=== PATIENT | female | born 1965 | race Caucasian/White ===

== ENCOUNTER 2023-06-21 13:46 | Observation (INO) | payer OTHER, SELFPAY ==
[2023-06-21] VITALS (10 sets, daily range): BP systolic 95–120; BP diastolic 49–76; PULSE 60–88; RESP 17–26; TEMP 36.2–36.8; O2SAT 93–98; BMI 34.3
--- NOTE | 2023-06-21 14:23 | XRR_ITS ---
PROCEDURE INFORMATION: Exam: XR Chest Exam date and time: 06/21/2023 2:45 PM Age: 57 years old Clinical indication: Other: Syncope TECHNIQUE: Imaging protocol: Radiologic exam of the chest. Views: 2 views. COMPARISON: No relevant prior studies available. FINDINGS: Lungs: Unremarkable. No consolidation. Pleural spaces: Unremarkable. No pleural effusion. No pneumothorax. Heart/Mediastinum: Cardiac silhouette is borderline enlarged. Bones/joints: Unremarkable. XR/XR chest 2V* [id number] IMPRESSION: Borderline cardiomegaly otherwise negative chest.
--- NOTE | 2023-06-21 14:23 | CTR_ITS ---
PROCEDURE INFORMATION: Exam: CT Head Without Contrast Exam date and time: 06/21/2023 2:49 PM Age: 57 years old Clinical indication: Pain; Other: Syncope; Headache; Additional info: Acute onset headache TECHNIQUE: Imaging protocol: Computed tomography of the head without contrast. Radiation optimization: All CT scans at this facility use at least one of these dose optimization techniques: automated exposure control; mA and/or kV adjustment per patient size (includes targeted exams where dose is matched to clinical indication); or iterative reconstruction. REPORTING DATA: Count of CT and Cardiac NM exams in prior 12 months: This patient has received 0 known CTs and 0 known cardiac nuclear medicine studies in the 12 months prior to the current study. COMPARISON: No relevant prior studies available. RADIATION DOSE METRICS: Total DLP (mGy-cm): 1075.08 FINDINGS: Brain: Normal. No hemorrhage. No space-occupying masses or areas of mass effect. No edema or midline shift. Cortical sulci are unremarkable for age. Cerebral ventricles: No ventriculomegaly. Paranasal sinuses: Visualized sinuses are unremarkable. No fluid levels. Mastoid air cells: Visualized mastoid air cells are well aerated. Bones/joints: Unremarkable. Soft tissues: Unremarkable. CT/CT head wo con* [id number] IMPRESSION: Negative CT examination of the head. No acute intracranial abnormalities.
--- NOTE | 2023-06-21 14:27 | ED_ITS ---
Documented by User: ELISA Hernandez 06/21/23 16:20 HPI - Headache General: Chief Complaint: Headache Stated Complaint: N/V, Back pain, neck, shoulders, sob Time Seen by Provider: 06/21/23 14:01 History of Present Illness: Patient is a 57-year-old female with a past medical history significant for coronary artery disease requiring 2 stents and hypertension who presents to the emergency department for evaluation of a headache and a syncopal episode. Patient reports that at approximately 12:00 she started to experience back pain. Patient reports that the pain migrated into her neck and then into the occipital portion of her head. Patient reports that her back pain has primarily resolved, however, she continues to have a occipital headache. She currently rates her headache as a 7 out of 10 in severity that she describes as a pounding like sensation. Patient denies history of migraines. Patient states that she does take Plavix. Admits to lightheadedness, dizziness, nausea, and vomiting. Patient is unsure of exactly how many episodes of emesis she had. Patient reports that in in the car she did have 1 syncopal episode. Is unsure of exactly how long the syncopal episode lasted for. Patient reports that she was sitting down in the truck and did not fall. She denies chest pain, shortness of breath, palpitations, numbness, tingling, extremity weakness, abdominal pain, constipation, diarrhea, dysuria, hematuria, fever, chills, or any other associated symptoms. No other complaints at this time. Associated symptoms: Reports lightheadedness, nausea, syncope and vomiting; Deny chest pain, fever(s) or rash Review of Systems General: Reports: 10 or more systems reviewed and unremarkable except in HPI and below Const: Denies: fever(s), chills or body aches Eyes: Reports: change in vision and blurry vision; Denies: eye discomfort, eye discharge or eye redness ENMT: Denies: throat pain, odynophagia, hoarseness or ear or mastoid pain Card: Reports: lightheadedness and syncope; Denies: chest pain, palpitations or irregular heart rhythm Resp: Denies: dyspnea or productive cough GI: Reports: nausea and vomiting; Denies: abdominal pain or hematemesis : Denies: flank pain, dysuria or urinary frequency Musc: Reports: neck pain; Denies: back pain or extremity pain Skin/Breast: Denies: rash Neuro: Reports: headache(s) and dizziness; Denies: weakness in extremities or sensory changes Psych: Denies: anxiety or depression Physical Exam Const: COMMON NORMALS: no acute distress, patient oriented x3 and no limitations HENMT: COMMON NORMALS: normocephalic, atraumatic, hearing grossly normal bilaterally, external ears normal, TM's normal bilaterally, Normal external nose present, moist oral mucous membranes and oropharynx normal HEAD & SCALP: normocephalic and atraumatic NOSE: Normal external nose present EXTERNAL EAR: Yes external ears normal TYMPANIC MEMBRANE: TM's normal bilaterally Eye: COMMON NORMALS: Equal, round and reactive pupils present, EOMs intact bilaterally and conjunctivae normal CONJUNCTIVA: Yes conjunctivae normal PUPIL: Yes Equal, round and reactive pupils present Neck/C-Spine: COMMON NORMALS: full ROM, no lymphadenopathy, supple, no meningeal signs and no JVD OTHER: No pain noted to the cervical neck. Chest: COMMONS NORMALS: normal inspection of the chest Resp: COMMON NORMALS: normal respiratory effort, No retractions, No use of accessory muscles and clear to auscultation bilaterally AUSCULTATION: clear to auscultation bilaterally Cardio: COMMON NORMALS: no JVD, regular rate, regular rhythm, No gallops present (Cardio), No clicks present (Cardio), No murmurs present (Cardio) and No rub (Cardio) RATE: regular rate RHYTHM: regular rhythm GI: COMMON NORMALS: Normal to inspection, nondistended, normoactive bowel sounds present, Soft to palpation and non-tender PALPATION: Yes Soft to palpation Extremity: COMMON NORMALS: normal to inspection and full ROM Neuro: COMMON NORMALS: patient oriented x3, CN's II-XII intact bilaterally, moves all extremities, no focal motor deficits and no sensory deficits noted MENINGEAL SIGNS: Yes no meningeal signs Skin: COMMON NORMALS: no rashes or lesions noted GENERAL SKIN EXAM: no rashes or lesions noted Course Vital Signs: Vital signs: Vital Signs Temperature 98.0 F 06/21/23 13:56 Pulse Rate 72 06/21/23 15:47 Respiratory Rate 23 H 06/21/23 15:47 Blood Pressure 105/53 06/21/23 15:47 Pulse Oximetry 97 06/21/23 15:47 Oxygen Delivery Me thod Room Air 06/21/23 15:47 MDM - Headache Medical Decision Making Patient is a 57-year-old female with a past medical history significant for coronary artery disease requiring 2 stents and hypertension who presents to the emergency department for evaluation of a headache and a syncopal episode. On physical examination patient is nontoxic and in no acute distress. Vital signs remained stable throughout the ED course. Patient is neurovascular intact. No focal neurological deficits noted on examination. Sensation intact to the bilateral upper and lower extremities. No meningeal signs noted. Patient is afebrile. I do not think meningitis or encephalitis is likely at this time. No focal neurological deficits noted on examination. Smile is equal and symmetrical. Do not think stroke is likely at this time. CBC showed no evidence of leukocytosis. CMP showed a creatinine of 1 and a GFR of 56.7. Baseline troponin is 9. 2-hour troponin pending. Chest x-ray showed no acute cardiopulmonary pathology. CT of the head showed no acute intracranial abnormalities. EKG sinus rhythm with nonspecific ST and T wave abnormalities. Urinalysis currently pending. Due to patient's syncopal episode I will admit to the hospitalist for further evaluation. I spoke with Dr. grigsby, the hospitalist on-call, who recommended obtaining a BNP, CRP, procalcitonin, TSH, urine drug screen, and agreed to admit the patient. At this point in time plan of care was passed over to my colleague Dr. Lemos. Patient stated understanding of all discharge directions was agreeable to the plan of care. Patient currently awaiting to be admitted to the floor. Differential Diagnosis Likely migraine, tension headache, subarachnoid hemorrhage (CVA, acute coronary syndrome) and meningitis Lab Data 06/21/23 14:36 06/21/23 14:36 Radiology Impressions Chest X-Ray 06/21/23 14:23 IMPRESSION: Borderline cardiomegaly otherwise negative chest. Head CT 06/21/23 14:23 IMPRESSION: Negative CT examination of the head. No acute intracranial abnormalities. Laboratory Results WBC 10.78 10^3/uL (3.29-11.43) 06/21/23 14:36 RBC 4.22 10^6/uL (3.85-5.65) 06/21/23 14:36 Hgb 13.00 g/dL (11.27-16.99) 06/21/23 14:36 Hct 39.2 % (36-47) 06/21/23 14:36 MCV 92.9 fl (85-98) 06/21/23 14:36 MCH 30.8 pg (27-33) 06/21/23 14:36 MCHC 33.2 g/dL (30-55) 06/21/23 14:36 RDW 12.5 % (12.1-15.1) 06/21/23 14:36 Plt Count 313 10^3/cmm (157-399) 06/21/23 14:36 MPV 9.7 fL (7.4-10.4) 06/21/23 14:36 Neut % (Auto) 78.0 % 06/21/23 14:36 Lymph % (Auto) 13.7 % 06/21/23 14:36 [place] % (Auto) 6.8 % 06/21/23 14:36 Eos % (Auto) 0.7 % 06/21/23 14:36 Baso % (Auto) 0.4 % 06/21/23 14:36 Neut # (Auto) 8.41 10^3/uL (1.8-7.7) H 06/21/23 14:36 Lymph # (Auto) 1.5 10^3/uL (0.8-4.8) 06/21/23 14:36 [place] # (Auto) 0.7 10^3/uL (0.2-0.9) 06/21/23 14:36 Eos # (Auto) 0.1 10^3/uL (0.0-0.8) 06/21/23 14:36 Baso # (Auto) 0.0 10^3/uL (0.0-0.1) 06/21/23 14:36 Nucleated RBC % (auto) 0 % 06/21/23 14:36 Nucleated RBCs # 0.0 /100WBC 06/21/23 14:36 PT 13.00 SECONDS (12.1-14.9) 06/21/23 14:36 INR 0.96 (0.8-1.2) 06/21/23 14:36 APTT 23.7 SECONDS (23.9-36.7) L 06/21/23 14:36 Sodium 134 mmol/L (136-145) L 06/21/23 14:36 Potassium 4.1 mmol/L (3.5-5.1) 06/21/23 14:36 Chloride 99 mmol/L (98-107) 06/21/23 14:36 Carbon Dioxide 22 mmol/L (22-29) 06/21/23 14:36 Anion Gap 17.1 (5-19) 06/21/23 14:36 BUN 28 mg/dL (6-20) H 06/21/23 14:36 Creatinine 1.0 mg/dL (0.5-0.9) H 06/21/23 14:36 GFR Calculation 56.7 mL/min (90-130) L 06/21/23 14:36 Glucose 143 mg/dL (65-115) H 06/21/23 14:36 Calculated Osmolality 286 mOsm/kg (285-295) 06/21/23 14:36 Calcium 9.7 mg/dL (8.5-10.5) 06/21/23 14:36 Total Bilirubin 0.6 mg/dL (0.15-1.2) 06/21/23 14:36 AST 15 U/L (0-32) 06/21/23 14:36 ALT 19 U/L (0-33) 06/21/23 14:36 Alkaline Phosphatase 39 U/L (35-105) 06/21/23 14:36 Troponin T Baseline 9 ng/L (0-10) 06/21/23 14:36 Total Protein 7.2 g/dL (6.6-8.7) 06/21/23 14:36 Albumin 4.6 g/dL (3.5-5.2) 06/21/23 14:36 Globulin 2.6 g/dL (1.3-4.6) 06/21/23 14:36 Urine Color Yellow (Yellow) 06/21/23 15:36 Urine Appearance Clear (CLEAR) 06/21/23 15:36 Urine pH 5 (5-7) 06/21/23 15:36 Ur Specific [place] 1.020 (1.005-1.030) 06/21/23 15:36 Urine Protein Neg (Negative) 06/21/23 15:36 Urine Glucose (UA) Norm (Normal) 06/21/23 15:36 Urine Ketones Negative (Negative) 06/21/23 15:36 Urine Blood 2+ (Negative) H 06/21/23 15:36 Urine Nitrate Negative (Negative) 06/21/23 15:36 Urine Bilirubin Neg (Negative) 06/21/23 15:36 Urine Urobilinogen Norm mg/dL (Negative) 06/21/23 15:36 Ur Leukocyte Esterase Trace (Negative) H 06/21/23 15:36 Urine RBC 0-4 /hpf (0-2) H 06/21/23 15:36 Urine WBC 5-10 /hpf (0-5) H 06/21/23 15:36 Ur Squamous Epith Cells 0-4 /hpf (0-5) H 06/21/23 15:36 Amorphous Sediment Not Reportable 06/21/23 15:36 Urine Bacteria 2+ /hpf (NONE) H 06/21/23 15:36 Urine Mucus 2+ /hpf 06/21/23 15:36 All radiology interpretation(s) finalized by discharge Discharge Plan Discharge Patient Disposition: Admitted As Inpatient Clinical Impression: Syncope, Headache Condition: Stable Sign Out Sign Out Data: Patient Sign Out occurred on 06/21/23 at 16:27. Patient's care was discussed, and care was transferred from to Yusef Lemos DO. 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 [employer] Documented by User: Yusef Lemos DO 06/21/23 16:30 HPI - Headache General: Chief Complaint: Headache Stated Complaint: N/V, Back pain, neck, shoulders, sob Time Seen by Provider: 06/21/23 14:01 Course Vital Signs: Vital signs: Vital Signs Temperature 98.0 F 06/21/23 13:56 Pulse Rate 72 06/21/23 15:47 Respiratory Rate 23 H 06/21/23 15:47 Blood Pressure 105/53 06/21/23 15:47 Pulse Oximetry 97 06/21/23 15:47 Oxygen Delivery Me thod Room Air 06/21/23 15:47 MDM - Headache Medical Decision Making Patient is a 57-year-old female with a past medical history significant for coronary artery disease requiring 2 stents and hypertension who presents to the emergency department for evaluation of a headache and a syncopal episode. On physical examination patient is nontoxic and in no acute distress. Vital signs remained stable throughout the ED course. Patient is neurovascular intact. No focal neurological deficits noted on examination. Sensation intact to the bilateral upper and lower extremities. No meningeal signs noted. Patient is afebrile. I do not think meningitis or encephalitis is likely at this time. No focal neurological deficits noted on examination. Smile is equal and symmetri jose. Do not think stroke is likely at this time. CBC showed no evidence of leukocytosis. CMP showed a creatinine of 1 and a GFR of 56.7. Baseline troponin is 9. 2-hour troponin pending. Chest x-ray showed no acute cardiopulmonary pathology. CT of the head showed no acute intracranial abnormal ities. EKG sinus rhythm with nonspecific ST and T wave abnormalities. Urinalysis currently pending. Due to patient's syncopal episode I will admit to the hospitalist for further evaluation. I spoke with Dr. grigsby, the hospitalist on-call, who recommended obtaining a BNP, CRP, procalcitonin, TSH, urine drug screen, and agreed to admit the patient. At this point in time plan of care was passed over to my colleague Dr. Lemos. Patient stated understanding of all discharge directions was agreeable to the plan of care. Patient currently awaiting to be admitted to the floor. Chart reviewed and patient discussed with midlevel. Agree with assessment and plan. Lab Data 06/21/23 14:36 06/21/23 14:36 Radiology Impressions Chest X-Ray 06/21/23 14:23 IMPRESSION: Borderline cardiomegaly otherwise negative chest. Head CT 06/21/23 14:23 IMPRESSION: Negative CT examination of the head. No acute intracranial abnormalities. Laboratory Results WBC 10.78 10^3/uL (3.29-11.43) 06/21/23 14:36 RBC 4.22 10^6/uL (3.85-5.65) 06/21/23 14:36 Hgb 13.00 g/dL (11.27-16.99) 06/21/23 14:36 Hct 39.2 % (36-47) 06/21/23 14:36 MCV 92.9 fl (85-98) 06/21/23 14:36 MCH 30.8 pg (27-33) 06/21/23 14:36 MCHC 33.2 g/dL (30-55) 06/21/23 14:36 RDW 12.5 % (12.1-15.1) 06/21/23 14:36 Plt Count 313 10^3/cmm (157-399) 06/21/23 14:36 MPV 9.7 fL (7.4-10.4) 06/21/23 14:36 Neut % (Auto) 78.0 % 06/21/23 14:36 Lymph % (Auto) 13.7 % 06/21/23 14:36 [place] % (Auto) 6.8 % 06/21/23 14:36 Eos % (Auto) 0.7 % 06/21/23 14:36 Baso % (Auto) 0.4 % 06/21/23 14:36 Neut # (Auto) 8.41 10^3/uL (1.8-7.7) H 06/21/23 14:36 Lymph # (Auto) 1.5 10^3/uL (0.8-4.8) 06/21/23 14:36 [place] # (Auto) 0.7 10^3/uL (0.2-0.9) 06/21/23 14:36 Eos # (Auto) 0.1 10^3/uL (0.0-0.8) 06/21/23 14:36 Baso # (Auto) 0.0 10^3/uL (0.0-0.1) 06/21/23 14:36 Nucleated RBC % (auto) 0 % 06/21/23 14:36 Nucleated RBCs # 0.0 /100WBC 06/21/23 14:36 PT 13.00 SECONDS (12.1-14.9) 06/21/23 14:36 INR 0.96 (0.8-1.2) 06/21/23 14:36 APTT 23.7 SECONDS (23.9-36.7) L 06/21/23 14:36 Sodium 134 mmol/L (136-145) L 06/21/23 14:36 Potassium 4.1 mmol/L (3.5-5.1) 06/21/23 14:36 Chloride 99 mmol/L (98-107) 06/21/23 14:36 Carbon Dioxide 22 mmol/L (22-29) 06/21/23 14:36 Anion Gap 17.1 (5-19) 06/21/23 14:36 BUN 28 mg/dL (6-20) H 06/21/23 14:36 Creatinine 1.0 mg/dL (0.5-0.9) H 06/21/23 14:36 GFR Calculation 56.7 mL/min (90-130) L 06/21/23 14:36 Glucose 143 mg/dL (65-115) H 06/21/23 14:36 Calculated Osmolality 286 mOsm/kg (285-295) 06/21/23 14:36 Calcium 9.7 mg/dL (8.5-10.5) 06/21/23 14:36 Total Bilirubin 0.6 mg/dL (0.15-1.2) 06/21/23 14:36 AST 15 U/L (0-32) 06/21/23 14:36 ALT 19 U/L (0-33) 06/21/23 14:36 Alkaline Phosphatase 39 U/L (35-105) 06/21/23 14:36 Troponin T Baseline 9 ng/L (0-10) 06/21/23 14:36 Total Protein 7.2 g/dL (6.6-8.7) 06/21/23 14:36 Albumin 4.6 g/dL (3.5-5.2) 06/21/23 14:36 Globulin 2.6 g/dL (1.3-4.6) 06/21/23 14:36 Urine Color Yellow (Yellow) 06/21/23 15:36 Urine Appearance Clear (CLEAR) 06/21/23 15:36 Urine pH 5 (5-7) 06/21/23 15:36 Ur Specific [place] 1.020 (1.005-1.030) 06/21/23 15:36 Urine Protein Neg (Negative) 06/21/23 15:36 Urine Glucose (UA) Norm (Normal) 06/21/23 15:36 Urine Ketones Negative (Negative) 06/21/23 15:36 Urine Blood 2+ (Negative) H 06/21/23 15:36 Urine Nitrate Negative (Negative) 06/21/23 15:36 Urine Bilirubin Neg (Negative) 06/21/23 15:36 Urine Urobilinogen Norm mg/dL (Negative) 06/21/23 15:36 Ur Leukocyte Esterase Trace (Negative) H 06/21/23 15:36 Urine RBC 0-4 /hpf (0-2) H 06/21/23 15:36 Urine WBC 5-10 /hpf (0-5) H 06/21/23 15:36 Ur Squamous Epith Cells 0-4 /hpf (0-5) H 06/21/23 15:36 Amorphous Sediment Not Reportable 06/21/23 15:36 Urine Bacteria 2+ /hpf (NONE) H 06/21/23 15:36 Urine Mucus 2+ /hpf 06/21/23 15:36 Discharge Plan Discharge Patient Disposition: Admitted As Inpatient Clinical Impression: Syncope, Headache Condition: Stable Sign Out Sign Out Data: Patient Sign Out occurred on 06/21/23 at 16:27. Patient's care was discussed, and care was transferred from to Yusef Lemos DO. 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 Fredrick Sethi
[2023-06-21 14:45] LABS: Basophils % 0.4 %; Eosinophils # 0.1 10^3/uL (0.0-0.8); Eosinophils % 0.7 %; Hematocrit 39.2 % (36-47); Lymphocytes # 1.5 10^3/uL (0.8-4.8); Lymphocytes % 13.7 %; Mean Corpuscular HGB Conc 33.2 g/dL (30-55); Mean Corpuscular Hemoglobin 30.8 pg (27-33); Mean Corpuscular Volume 92.9 fl (85-98); Mean Platelet Volume 9.7 fL (7.4-10.4); Monocytes # 0.7 10^3/uL (0.2-0.9); Monocytes % 6.8 %; Neutrophils # 8.41 10^3/uL (1.8-7.7); Nucleated Red Blood Cells % 0 %; Platelet Count 313 10^3/cmm (157-399); Red Blood Count 4.22 10^6/uL (3.85-5.65); Red Cell Distribution Width 12.5 % (12.1-15.1); White Blood Count 10.78 10^3/uL (3.29-11.43)
[2023-06-21 15:19] LABS: Alanine Aminotransferase 19 U/L (0-33); Albumin Level 4.6 g/dL (3.5-5.2); Alkaline Phosphatase 39 U/L (35-105); Anion Gap 17.1 (5-19); Aspartate Amino Transferase 15 U/L (0-32); Blood Urea Nitrogen 28 mg/dL (6-20); Calcium 9.7 mg/dL (8.5-10.5); Carbon Dioxide 22 mmol/L (22-29); Chloride 99 mmol/L (98-107); Globulin 2.6 g/dL (1.3-4.6); Glomerular Filtration Rate 56.7 mL/min (90-130); Glucose 143 mg/dL (65-115); Osmolality Calculated 286 mOsm/kg (285-295); Potassium 4.1 mmol/L (3.5-5.1); Sodium 134 mmol/L (136-145); Total Bilirubin 0.6 mg/dL (0.15-1.2); Total Protein 7.2 g/dL (6.6-8.7)
[2023-06-21 15:21] LABS: Troponin(5th) Baseline 9 ng/L (0-10)
[2023-06-21 15:24] LABS: INR 0.96 (0.8-1.2); Partial Thromboplastin Time 23.7 SECONDS (23.9-36.7)
[2023-06-21] MEDS: sodium chloride 0.9% 1,000 ML 999 ML IV (15:47)
[2023-06-21 16:21] LABS: Add Urine Microscopic? YES; Bilirubin Urine Neg (Negative); Blood Urine 2+ (Negative); Glucose Urine UA Norm (Normal); Ketones Urine Negative (Negative); Leukocyte Esterase Urine Trace (Negative); Nitrate Urine Negative (Negative); Protein Urine Neg (Negative); RBC Urine 0-4 /hpf (0-2); Squamous Epithelial Cell Urine 0-4 /hpf (0-5); Urine Appearance Clear (CLEAR); Urine Color Yellow (Yellow); Urobilinogen Urine Norm (Negative); pH Urine 5 (5-7)
[2023-06-21 16:22] LABS: Add Urine Culture? Yes; Bacteria Urine 2+ /hpf; Mucus Urine 2+ /hpf
--- NOTE | 2023-06-21 16:31 | ECG_ITS ---
[facility] Test Date: 2023-06-21 Pat Name: Jasmina Salgado Department: Room: Gender: Female Signal Intelligence/Electronic Warfare: : 1965 Requested By: Crispin Vuong Order Number: [id number] Diaz MD: Adilene Lanza M.D. Measurements Intervals [place] Rate: 63 P: 11 VT: 177 QRS: 21 QRSD: 105 T: 65 QT: 417 QTc: 427 Interpretive Statements SINUS RHYTHM WITH SINUS ARRHYTHMIA LOW QRS VOLTAGE IN PRECORDIAL LEADS [QRS DEFLECTION < 1.0 mV IN CHEST LEADS] POSSIBLE RIGHT VENTRICULAR CONDUCTION DELAY [RSR (QR) IN V1/V2] MODERATE T-WAVE ABNORMALITY, CONSIDER ANTERIOR ISCHEMIA [-0.1+ mV T-WAVE IN V3/V4] No previous ECG available for comparison Electronically Signed On 06-21-2023 17:52:41 CDT by Adilene Lanza M.D. [id number]
--- NOTE | 2023-06-21 16:35 | CTR_ITS ---
PROCEDURE INFORMATION: Exam: CTA Head With Contrast, Arteriography Exam date and time: 06/21/2023 4:46 PM Age: 57 years old Clinical indication: Other: Lightheaded, dizzyness, syncope TECHNIQUE: Imaging protocol: Computed tomographic angiography of the head with contrast. Exam focused on the arteries. 3D rendering (Not supervised by radiologist): MIP and/or 3D reconstructed images were created by the technologist. Radiation optimization: All CT scans at this facility use at least one of these dose optimization techniques: automated exposure control; mA and/or kV adjustment per patient size (includes targeted exams where dose is matched to clinical indication); or iterative reconstruction. Contrast material: OMNI 350; Contrast volume: 100 ml; Contrast route: INTRAVENOUS (IV); REPORTING DATA: Count of CT and Cardiac NM exams in prior 12 months: This patient has received 0 known CTs and 0 known cardiac nuclear medicine studies in the 12 months prior to the current study. COMPARISON: CT head wo con* [id number] 06/21/2023 2:49 PM RADIATION DOSE METRICS: Total DLP (mGy-cm): 492.52 FINDINGS: ANTERIOR CIRCULATION: Right internal carotid artery: Intracranial segment is patent with no significant stenosis. No aneurysm. Right middle cerebral artery: No occlusion or significant stenosis. No aneurysm. Right anterior cerebral artery: No occlusion or significant stenosis. No aneurysm. Left internal carotid artery: Intracranial segment is patent with no significant stenosis. No aneurysm. Left middle cerebral artery: No occlusion or significant stenosis. No aneurysm. Left anterior cerebral artery: No occlusion or significant stenosis. No aneurysm. POSTERIOR CIRCULATION: Right vertebral artery: No occlusion or significant stenosis. No aneurysm. Left vertebral artery: No occlusion or significant stenosis. No aneurysm. Basilar artery: No occlusion or significant stenosis. No aneurysm. Right posterior cerebral artery: No occlusion or significant stenosis. No aneurysm. Left posterior cerebral artery: No occlusion or significant stenosis. No aneurysm. Brain: No intracranial hemorrhage, mass effect, or midline shift. Cerebral ventricles: No ventriculomegaly. Bones/joints: Unremarkable. No acute fracture. Soft tissues: Unremarkable. PROCEDURE INFORMATION: Exam: CTA Neck With Contrast Exam date and time: 06/21/2023 4:46 PM Age: 57 years old Clinical indication: Other: Lightheaded, dizzyness, syncope TECHNIQUE: Imaging protocol: Computed tomographic angiography of the neck with contrast. Exam focused on the cervical segments of the vasculature. 3D rendering (Not supervised by radiologist): MIP and/or 3D reconstructed images were created by the technologist. Radiation optimization: All CT scans at this facility use at least one of these dose optimization techniques: automated exposure control; mA and/or kV adjustment per patient size (includes targeted exams where dose is matched to clinical indication); or iterative reconstruction. Contrast material: OMNI 350; Contrast volume: 100 ml; Contrast route: INTRAVENOUS (IV); REPORTING DATA: Count of CT and Cardiac NM exams in prior 12 months: This patient has received 0 known CTs and 0 known cardiac nuclear medicine studies in the 12 months prior to the current study. COMPARISON: CT head wo con* [id number] 06/21/2023 2:49 PM RADIATION DOSE METRICS: Total DLP (mGy-cm): 492.52 FINDINGS: Right common carotid artery: No stenosis. No dissection or occlusion. Right internal carotid artery: No stenosis of the extracranial segment. No dissection or occlusion. Right external carotid artery: No occlusion or stenosis of the origin. Left common carotid artery: No stenosis. No dissection or occlusion. Left internal carotid artery: No stenosis of the extracranial segment. No dissection or occlusion. Left external carotid artery: No occlusion or stenosis of the origin. Right vertebral artery: No stenosis. No dissection or occlusion. Left vertebral artery: No stenosis. No dissection or occlusion. Soft tissues: Normal. No significant soft tissue swelling. Bones/joints: No acute fracture. Moderate degenerative changes mid-lower cervical spine. Lungs: Scattered ground-glass opacities upper lung zones intermixed with areas of relative radiolucency in a mosaic pattern possibly due to air trapping. CT/CT angio headneck* [id number] IMPRESSION: No large vessel stenosis or occlusion. IMPRESSION: No stenosis or occlusion. REFERENCES: NASCET CRITERIA. The degree of stenosis in the cervical segment of the internal carotid artery is based on NASCET criteria. Normal is no stenosis. Mild is less than 50% stenosis. Moderate is 50-69% stenosis. Severe is 70% to 99% stenosis. Total occlusion is no detectable patent lumen.
--- NOTE | 2023-06-21 16:35 | USCV_ITS ---
Jasmina Salgado Age: 57 Gender: F : 1965 Exam Date: 06/21/2023 17:33 Ordering Phys: Bill Loredo MD Technologist: Damon Mei Exam Location: [facility] Indication: syncope BP: 101 / 56 HR: 65 Rhythm: Sinus Technical Quality: Adequate MEASUREMENTS (Male / Female) Normal Values 2D ECHO LVOT Diameter 2.0 cm LV Ejection Fraction MOD 2C 60.6 % LV Ejection Fraction 2C AL 61.7 % LA Diameter 3.3 cm LA Width 3.4 cm LA Height 4.1 cm RA Width 3.6 cm RA Height 4.5 cm Aorta at Sinotubular Diameter 2.5 cm IVC Diameter 1.8 cm M-MODE Aortic Annulus Diameter 2.8 cm LA Ao Ratio MM 1.3 MV E Point Septal Separation 0.5 cm DOPPLER AV Peak Velocity 148.0 cm/s LVOT Peak Velocity 59.0 cm/s AV Area Cont Eq vti 1.3 cm squared AV Area Cont Eq pk 1.3 cm squared MV Peak Velocity 71.0 cm/s MV Area PHT 4.0 cm squared Mitral E to A Ratio 1.1 MV E' Velocity 35.0 cm/s Mitral E to MV E' Ratio 6.6 Mitral E to LV E' Lateral Ratio 6.8 Mitral E to LV E' Septal Ratio 6.4 Right Atrial Pressure 3.0 mmHg PV Peak Velocity 106.3 cm/s RV Acceleration Time 0.1 s RV Ejection Time 0.3 s RV AcT/ET 0.3 FINDINGS Left Ventricle Normal left ventricular size, systolic function and wall thickness, with no regional wall motion abnormalities. Left ventricular ejection fraction is estimated at 60 %. Normal diastolic function. Right Ventricle Normal right ventricular size and systolic function. RVSP could not be calculated due to incomplete tricuspid regurgitation velocity profile. Right Atrium Normal right atrial size. Left Atrium Normal left atrial size. Mitral Valve Structurally normal mitral valve. No mitral valve stenosis. No mitral valve regurgitation. Aortic Valve Structurally normal trileaflet aortic valve. No aortic valve stenosis. No aortic valve regurgitation. Tricuspid Valve Structurally normal tricuspid valve. No tricuspid valve stenosis. Trace tricuspid valve regurgitation. Pulmonic Valve Pulmonic valve not well visualized. No pulmonary valve stenosis. Trace pulmonary valve regurgitation. Pericardium No pericardial effusion. Aorta Normal size aortic root and proximal ascending aorta. IVC Normal IVC dimension with >50% respiratory change of the inferior vena cava. CONCLUSIONS 1. Normal left ventricular size, systolic function and wall thickness, with no regional wall motion abnormalities. Left ventricular ejection fraction is estimated at 60 %. Normal diastolic function. 2. No significant valvular abnormality. 3. No prior similar studies to compare. Adilene Lanza MD (Electronically Signed) Final Date: 22 June 2023 09:32 S
--- NOTE | 2023-06-21 16:44 | PM.HP ---
Providers/Chief Complaint Chief Complaint: N/V, Back pain, neck, shoulders, sob History of Present Illness Jasmina Salgado is a 57 year old female with a past medical history of CAD, hypertension, hypothyroidism, who presents to [facility] due to syncopal episode, presyncope, lightens, dizziness, posterior headaches. Patient tells me that recently back in November, she had 2 stents placed, in [facility], due to shortness of breath and anterior chest pain, since then she has been doing well, she is actually been working on her mother's house, building the home, she does tell me that yesterday she was working with chemicals, working in the garage, she also was painting, she was not wearing a facemask. Denies being symptomatic, she does report she does not hydrate that well. She tells me that a week ago she did feel lightheaded and dizzy felt like she was in a pass out. He tells me that today she actually was at a ball game for one of her grandsons, which she started to feel unwell, she had a poor appetite, felt lightheaded, dizzy, did not feel well. At that time she also reported posterior headaches, she reported pain, stiffness at the base of her neck, radiating up to her head, no blurry vision, no facial droop no slurring of words, no focal weakness, no visual deficits, she was able to walk, she got into her car, this is when her tells me that she passed out a couple times, while in the car and felt nauseous and vomited, he tells me that when she passed out she would be confused and would take a few seconds for her to come to full cognition. No facial droop no slurring of words, no focal weakness, no seizure-like episodes. Her does tell me that when she was young, she had a history of passing out, she was diagnosed with a cardiac murmur she also has a history of passing out when she is in a lot of pain. Review of Systems Const: Denies: fever(s) or chills Eyes: Denies: change in vision Card: Reports: lightheadedness and syncope; Denies: chest pain, palpitations or dyspnea on exertion Resp: Denies: dyspnea or non-productive cough GI: Denies: abdominal pain, nausea or vomiting : Denies: flank pain or difficulty voiding Musc: Reports: neck pain and back pain Skin/Breast: Denies: rash Neuro: Reports: dizziness; Denies: headache(s), numbness in extremities, weakness in extremities, sensory changes, lack of coordination, difficulty walking, Slurred speech present or difficulty communicating thoughts Psych: Denies: anxiety or depression Endo: Denies: polyuria Hugo/Lymph: Denies: easy bruising Medications/Allergies Home Medications Medication Instructions Recorded Confirmed Last Taken Type aspirin 81 mg tablet,delayed 81 mg PO DAILY 06/21/23 06/21/23 1 Week Ago History release ~06/14/23 atorvastatin 80 mg tablet 80 mg PO DAILY 06/21/23 06/21/23 06/21/23 History clopidogrel 75 mg tablet 75 mg PO DAILY 06/21/23 06/21/23 06/21/23 History escitalopram oxalate 10 mg tablet 15 mg PO BEDTIME 06/21/23 06/21/23 06/21/23 History fexofenadine 180 mg tablet 180 mg PO DAILY 06/21/23 06/21/23 1 Week Ago History ~06/14/23 isosorbide mononitrate 30 mg 30 mg PO QAM 06/21/23 06/21/23 06/21/23 History tablet,extended release 24 hr levothyroxine 137 mcg tablet 137 mcg PO DAILY 06/21/23 06/21/23 06/21/23 History lisinopril 20 mg tablet 20 mg PO DAILY 06/21/23 06/21/23 06/21/23 History mjiwxrcp-ypsnojzjl-bwxnrxmub 3.5 4 drp otic (ear) TID 06/21/23 06/21/23 Unknown History mg/mL-10,000 unit/mL-1 % ear solution PFSH Acute PFSH: Medical History (Updated 06/21/23 @ 16:51 by Bill Loredo MD) CAD (coronary artery disease) History of angiography HTN (hypertension) with goal to be determined Hypothyroidism Surgical History (Updated 06/21/23 @ 16:50 by Bill Loredo MD) History of coronary artery stent placement Family History (Updated 06/21/23 @ 16:50 by Bill Loredo MD) Mother CAD (coronary artery disease) Sister Breast cancer Social History (Updated 06/21/23 @ 16:51 by Bill Loredo MD) Smoking and tobacco/nicotine status: never used tobacco/nicotine Alcohol intake: never Substance/Drug Use: never Vitals/I&O/Wt Last Vital Signs Temp 98.0 F 06/21/23 13:56 Pulse 72 06/21/23 15:47 Resp 23 H 06/21/23 15:47 BP 105/53 06/21/23 15:47 Pulse Ox 97 06/21/23 15:47 O2 Del Method Room Air 06/21/23 15:47 Weight last 48 hrs Weight 90.718 kg Physical Exam Const: COMMON NORMALS: no acute distress and patient oriented x3 HENMT: COMMON NORMALS: normocephalic HEAD & SCALP: normocephalic Eye: COMMON NORMALS: Equal, round and reactive pupils present and EOMs intact bilaterally Neck/C-Spine: COMMON NORMALS: full ROM and no lymphadenopathy Lymph: LYMPHATIC: no lymphadenopathy noted Resp: COMMON NORMALS: normal respiratory effort, No retractions, No use of accessory muscles and clear to auscultation bilaterally AUSCULTATION: clear to auscultation bilaterally Cardio: COMMON NORMALS: no JVD, regular rate, regular rhythm, S1 normal heart sound present and S2 normal heart sound present RATE: regular rate RHYTHM: regular rhythm HEART SOUNDS: S1 normal heart sound present and S2 normal heart sound present GI: COMMON NORMALS: Normal to inspection, nondistended, normoactive bowel sounds present, Soft to palpation and non-tender Extremity: COMMON NORMALS: no pedal edema Neuro: COMMON NORMALS: patient oriented x3, CN's II-XII intact bilaterally, moves all extremities and no focal motor deficits Psych: COMMON NORMALS: mental status grossly normal Data 06/21/23 14:36 06/21/23 14:36 A&P Assessment and plan (1) Syncope: (2) Lightheadedness: (3) Nausea & vomiting: (4) Headache: Plan Syncope, ? With lightheadedness, nausea, vomiting, posterior headaches, ? Plan, ? Etiology unclear ? CT angiogram head and neck, ? Orthostatics vitals: ? Serial EKGs, serial troponins, telemetry monitoring ? Cardiac echo ? Telemetry monitoring, ? Continue aspirin, statin, Plavix ? Check TSH, follow UA, ? History of CAD, ? History of hypertension: Has history of hypothyroidism, ? Full code, ? Lovenox for DVT prophylaxis PT OT Attestations Medical Necessity Statement*: Patient requires hospitalization, headache, syncope, dizziness, syncope, outpatient with observation Diagnoses Syncope R55 Lightheadedness R42 Nausea & vomiting R11.2 Headache R51.9
[2023-06-21 16:54] LABS: NT Pro B Type Natriuretic Pept 74 pg/mL (0-125); Thyroid Stimulating Hormone 15.35 uIU/mL (0.27-4.20)
[2023-06-21] MEDS: iohexol 350 mg/mL 500 mL Btl (per mL) IV (16:58)
[2023-06-21 17:05] LABS: Amphetamines Screen Urine Negative (Negative); Barbiturates Screen Urine Negative (Negative); Benzodiazepines Screen Urine Negative (Negative); Cocaine Screen Urine Negative (Negative); Opiate Screen Urine Negative (Negative); PCP Screen Urine Negative (Negative); THC Screen Urine Negative (Negative)
[2023-06-21 17:05] LABS: C Reactive Protein 4.2 mg/L (0.0-4.9)
[2023-06-21 17:45] LABS: Lactic Sepsis W/Reflex 0.9 mmol/L (0.5-2.2)
[2023-06-21 18:03] LABS: Troponin 5 2HR 6.27 ng/L (0-10); Troponin 5 2HR Delta -2.73 ABS# (0-10)
[2023-06-21 18:06] LABS: Chol HDL Ratio 3.78 mg/dL (0.0-4.40); Cholesterol 204 mg/dL (0-200); HDL Cholesterol 54 mg/dL (60-100); LDL Cholesterol Calculated 126 mg/dL (50-129); LDL HDL Ratio 2.33 RATIO (0.00-3.22); Triglycerides 120 mg/dL (0-150)
[2023-06-21] MEDS: enoxaparin 40 mg/0.4 mL Syringe SUBCUT (18:23)
[2023-06-21] MEDS: pantoprazole 40 mg SDV IVP (18:23)
[2023-06-21] MEDS: sodium chloride 0.9% 1,000 ML 100 ML IV (18:27)
[2023-06-21] MEDS: escitalopram 10 mg Tablet 15 MG PO (20:21)
[2023-06-21 22:55] LABS: Estmated Average Glucose 108; Hemoglobin A1C 5.4 % (4.0-6.0)
[2023-06-22 04:00] VITALS: BP 153/75; PULSE 72; RESP 18; TEMP 36.6; O2SAT 95
[2023-06-22] MEDS: sodium chloride 0.9% 1,000 ML 100 ML IV (04:00)
[2023-06-22 05:11] LABS: Basophils % 0.2 %; Eosinophils # 0.1 10^3/uL (0.0-0.8); Eosinophils % 1.1 %; Hematocrit 35.9 % (36-47); Lymphocytes # 1.5 10^3/uL (0.8-4.8); Lymphocytes % 17.9 %; Mean Corpuscular HGB Conc 33.1 g/dL (30-55); Mean Corpuscular Hemoglobin 30.7 pg (27-33); Mean Corpuscular Volume 92.8 fl (85-98); Mean Platelet Volume 10.1 fL (7.4-10.4); Monocytes # 0.8 10^3/uL (0.2-0.9); Monocytes % 9.8 %; Neutrophils % 70.8 %; Nucleated Red Blood Cells % 0 %; Platelet Count 262 10^3/cmm (157-399); Red Blood Count 3.87 10^6/uL (3.85-5.65); Red Cell Distribution Width 12.6 % (12.1-15.1)
[2023-06-22 05:38] LABS: Alanine Aminotransferase 16 U/L (0-33); Albumin Level 4.1 g/dL (3.5-5.2); Alkaline Phosphatase 33 U/L (35-105); Anion Gap 13.2 (5-19); Aspartate Amino Transferase 15 U/L (0-32); Blood Urea Nitrogen 17 mg/dL (6-20); Carbon Dioxide 21 mmol/L (22-29); Chloride 110 mmol/L (98-107); Creatinine Clr Calc Pharmacy 94.4054; Globulin 2.3 g/dL (1.3-4.6); Glomerular Filtration Rate 85.6 mL/min (90-130); Glucose 102 mg/dL (65-115); Magnesium 2.2 mg/dL (1.7-2.3); Osmolality Calculated 292 mOsm/kg (285-295); Phosphorus 2.9 mg/dL (2.5-4.5); Potassium 4.2 mmol/L (3.5-5.1); Sodium 140 mmol/L (136-145); Total Bilirubin 0.5 mg/dL (0.15-1.2); Total Protein 6.4 g/dL (6.6-8.7)
[2023-06-22] MEDS: isosorbide mononitrate ER 30 mg Tablet PO (05:46)
[2023-06-22 06:00] VITALS: PULSE 68
[2023-06-22 08:00] VITALS: BP 123/71; PULSE 71; RESP 17; TEMP 36.4; O2SAT 95
[2023-06-22 08:21] VITALS: BP 104/64; BP 112/70; BP 123/71
[2023-06-22] MEDS: aspirin 81 mg EC Tablet PO (10:36)
[2023-06-22] MEDS: atorvastatin 40 mg Tablet 80 MG PO (10:36)
[2023-06-22] MEDS: clopidogrel 75 mg Tablet PO (10:37)
[2023-06-22] MEDS: levothyroxine 137 mcg Tablet PO (10:38)
[2023-06-22] MEDS: lisinopril 20 mg Tablet PO (10:38)
[2023-06-22 10:53] LABS: Free T4 Free Thyroxine 1.01 ng/dL (0.82-1.77); T3 Free 1.7 PG/ML (2.0-4.4)
--- NOTE | 2023-06-22 10:58 | PM.DCS ---
Discharge Providers Date of Admission: 06/21/23 17:31 Date of Discharge: June 22, 2023 Attending Provider at Admission: Bill Loredo MD Attending Provider at Discharge: Bill Loredo MD Diagnoses at Discharge Discharge Diagnosis (1) Syncope: Status: Acute (2) Lightheadedness: Status: Acute (3) Nausea & vomiting: Status: Acute (4) Headache: Status: Acute Reason for Visit Reason for Visit: N/V, Back pain, neck, shoulders, sob Hospital Course Hospital Course Jasmina Salgado is a 57 year old female with a past medical history of CAD, hypertension, hypothyroidism, who presents to [facility] due to syncopal episode, presyncope, lightens, dizziness, posterior headaches.? Patient tells me that recently back in November, she had 2 stents placed, in [facility], due to shortness of breath and anterior chest pain, since then she has been doing well, she is actually been working on her mother's house, building the home, she does tell me that yesterday she was working with chemicals, working in the garage, she also was painting, she was not wearing a facemask.? Denies being symptomatic, she does report she does not hydrate that well.? She tells me that a week ago she did feel lightheaded and dizzy felt like she was in a pass out.? He tells me that today she actually was at a ball game for one of her grandsons, which she started to feel unwell, she had a poor appetite, felt lightheaded, dizzy, did not feel well.? At that time she also reported posterior headaches, she reported pain, stiffness at the base of her neck, radiating up to her head, no blurry vision, no facial droop no slurring of words, no focal weakness, no visual deficits, she was able to walk, she got into her car, this is when her tells me that she passed out a couple times, while in the car and felt nauseous and vomited, he tells me that when she passed out she would be confused and would take a few seconds for her to come to full cognition.? No facial droop no slurring of words, no focal weakness, no seizure-like episodes.? Her does tell me that when she was young, she had a history of passing out, she was diagnosed with a cardiac murmur she also has a history of passing out when she is in a lot of pain. Patient was admitted to [facility] for syncopal episode, no significant troponin elevation, had nonspecific T wave changes on anterior leads on EKG, echocardiogram no significant wall motion abnormalities, EF was within normal limits, no significant telemetry events, no recurrent episodes of syncope, she did well as inpatient, CT head within normal limits, CTA head and neck within normal limits, her orthostats were slightly positive, likely secondary hydration, received fluid therapy, she also had a UTI for which she will be discharged on antibiotics. In terms of the etiology behind her syncope could be a combination of dehydration, slight orthostatic hypotension, and a urinary tract infection. No significant strokelike symptoms, no seizure-like symptoms, the question then becomes that was this an acute cardiac event. 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 She did have a 24-hour event monitor which had no acute findings. I would recommend at least a 30-day event monitor, if she has any further chest pain or palpitations or syncopal episodes to come back to emergency room. 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 Follow-up with primary care provider in 24 to 48 hours. Physical Exam Const: COMMON NORMALS: no acute distress and patient oriented x3 Resp: COMMON NORMALS: normal respiratory effort, No retractions, No use of accessory muscles and clear to auscultation bilaterally AUSCULTATION: clear to auscultation bilaterally Cardio: COMMON NORMALS: regular rate, regular rhythm, S1 normal heart sound present and S2 normal heart sound present RATE: regular rate RHYTHM: regular rhythm HEART SOUNDS: S1 normal heart sound present and S2 normal heart sound present GI: COMMON NORMALS: Normal to inspection, nondistended, normoactive bowel sounds present and non-tender Extremity: COMMON NORMALS: no pedal edema Neuro: COMMON NORMALS: patient oriented x3 Psych: COMMON NORMALS: mental status grossly normal Discharge Data Studies Completed and Pending Completed Studies During Hospitalization Category Date Time Status CT angio head neck [CT angio headneck* 10002/47260] Cat Scan 06/21/23 16:[address] head wo con* [id number] Stat Cat Scan 06/21/23 14:23 Completed XR chest 2V* [id number] Stat Exams 06/21/23 14:23 Completed CV. echo complete* [id number] Stat Ultrasound 06/21/23 16:35 Completed Pending at discharge Category Date Time Status Complete Blood Count w/Auto AM LABS Lab 06/23/23 04:00 Ordered Complete Blood Count w/Auto AM LABS Lab 06/24/23 04:00 Ordered Comprehensive Metabolic Panel AM LABS Lab 06/23/23 04:00 Ordered Comprehensive Metabolic Panel AM LABS Lab 06/24/23 04:00 Ordered Free T4 Free Thyroxine Routine Lab 06/22/23 04:32 Results Magnesium AM LABS Lab 06/23/23 04:00 Ordered Magnesium AM LABS Lab 06/24/23 04:00 Ordered Phosphorus AM LABS Lab 06/23/23 04:00 Ordered Phosphorus AM LABS Lab 06/24/23 04:00 Ordered T3 Free Routine Lab 06/22/23 04:32 Results Urine Culture Stat Lab 06/21/23 15:36 Results Radiology Impressions Chest X-Ray 06/21/23 14:23 IMPRESSION: Borderline cardiomegaly otherwise negative chest. Head CT 06/21/23 14:23 IMPRESSION: Negative CT examination of the head. No acute intracranial abnormalities. Head/Neck CTA 06/21/23 16:35 IMPRESSION: No large vessel stenosis or occlusion. IMPRESSION: No stenosis or occlusion. REFERENCES: NASCET CRITERIA. The degree of stenosis in the cervical segment of the internal carotid artery is based on NASCET criteria. Normal is no stenosis. Mild is less than 50% stenosis. Moderate is 50-69% stenosis. Severe is 70% to 99% stenosis. Total occlusion is no detectable patent lumen. Laboratory Results WBC 8.20 10^3/uL (3.29-11.43) 06/22/23 04:32 RBC 3.87 10^6/uL (3.85-5.65) 06/22/23 04:32 Hgb 11.90 g/dL (11.27-16.99) 06/22/23 04:32 Hct 35.9 % (36-47) L 06/22/23 04:32 MCV 92.8 fl (85-98) 06/22/23 04:32 MCH 30.7 pg (27-33) 06/22/23 04:32 MCHC 33.1 g/dL (30-55) 06/22/23 04:32 RDW 12.6 % (12.1-15.1) 06/22/23 04:32 Plt Count 262 10^3/cmm (157-399) 06/22/23 04:32 MPV 10.1 fL (7.4-10.4) 06/22/23 04:32 Neut % (Auto) 70.8 % 06/22/23 04:32 Lymph % (Auto) 17.9 % 06/22/23 04:32 Holt % (Auto) 9.8 % 06/22/23 04:32 Eos % (Auto) 1.1 % 06/22/23 04:32 Baso % (Auto) 0.2 % 06/22/23 04:32 Neut # (Auto) 5.80 10^3/uL (1.8-7.7) 06/22/23 04:32 Lymph # (Auto) 1.5 10^3/uL (0.8-4.8) 06/22/23 04:32 Holt # (Auto) 0.8 10^3/uL (0.2-0.9) 06/22/23 04:32 Eos # (Auto) 0.1 10^3/uL (0.0-0.8) 06/22/23 04:32 Baso # (Auto) 0.0 10^3/uL (0.0-0.1) 06/22/23 04:32 Nucleated RBC % (auto) 0 % 06/22/23 04:32 Nucleated RBCs # 0.0 /100WBC 06/22/23 04:32 PT 13.00 SECONDS (12.1-14.9) 06/21/23 14:36 INR 0.96 (0.8-1.2) 06/21/23 14:36 APTT 23.7 SECONDS (23.9-36.7) L 06/21/23 14:36 Sodium 140 mmol/L (136-145) 06/22/23 04:32 Potassium 4.2 mmol/L (3.5-5.1) 06/22/23 04:32 Chloride 110 mmol/L (98-107) H 06/22/23 04:32 Carbon Dioxide 21 mmol/L (22-29) L 06/22/23 04:32 Anion Gap 13.2 (5-19) 06/22/23 04:32 BUN 17 mg/dL (6-20) 06/22/23 04:32 Creatinine 0.7 mg/dL (0.5-0.9) 06/22/23 04:32 GFR Calculation 85.6 mL/min (90-130) L 06/22/23 04:32 Glucose 102 mg/dL (65-115) 06/22/23 04:32 Estimat Average Glucose 108 06/21/23 14:36 Hemoglobin A1c 5.4 % (4.0-6.0) 06/21/23 14:36 Calculated Osmolality 292 mOsm/kg (285-295) 06/22/23 04:32 Lactic Acid 0.9 mmol/L (0.5-2.2) 06/21/23 16:54 Calcium 9.0 mg/dL (8.5-10.5) 06/22/23 04:32 Phosphorus 2.9 mg/dL (2.5-4.5) 06/22/23 04:32 Magnesium 2.2 mg/dL (1.7-2.3) 06/22/23 04:32 Total Bilirubin 0.5 mg/dL (0.15-1.2) 06/22/23 04:32 AST 15 U/L (0-32) 06/22/23 04:32 ALT 16 U/L (0-33) 06/22/23 04:32 Alkaline Phosphatase 33 U/L (35-105) L 06/22/23 04:32 Troponin T Baseline 9 ng/L (0-10) 06/21/23 14:36 Troponin T 120 Minute 6.27 ng/L (0-10) 06/21/23 16:54 Delta Troponin T -2.73 ABS# (0-10) L 06/21/23 16:54 Troponin T Hi Sens 6Hr 6.0 ng/L (0-10) 06/21/23 21:05 Troponin T Hi Sens 6Hr Delta -3.0 ng/L (0-12) L 06/21/23 21:05 C-Reactive Protein 4.2 mg/L (0.0-4.9) 06/21/23 14:36 NT-Pro-B Natriuret Pep 74 pg/mL (0-125) 06/21/23 14:36 Total Protein 6.4 g/dL (6.6-8.7) L 06/22/23 04:32 Albumin 4.1 g/dL (3.5-5.2) 06/22/23 04:32 Globulin 2.3 g/dL (1.3-4.6) 06/22/23 04:32 Triglycerides 120 mg/dL (0-150) 06/21/23 14:36 Cholesterol 204 mg/dL (0-200) H 06/21/23 14:36 LDL Cholesterol, Calc 126 mg/dL (50-129) 06/21/23 14:36 HDL Cholesterol 54 mg/dL (60-100) L 06/21/23 14:36 LDL/HDL Ratio 2.33 RATIO (0.00-3.22) 06/21/23 14:36 Cholesterol/HDL Ratio 3.78 mg/dL (0.0-4.40) 06/21/23 14:36 Procalcitonin 0.10 ng/mL (0-0.5) 06/21/23 14:36 TSH 15.35 uIU/mL (0.27-4.20) H 06/21/23 14:36 Free T4 1.01 ng/dL (0.82-1.77) 06/22/23 04:32 Urine Color Yellow (Yellow) 06/21/23 15:36 Urine Appearance Clear (CLEAR) 06/21/23 15:36 Urine pH 5 (5-7) 06/21/23 15:36 Ur Specific [place] 1.020 (1.005-1.030) 06/21/23 15:36 Urine Protein Neg (Negative) 06/21/23 15:36 Urine Glucose (UA) Norm (Normal) 06/21/23 15:36 Urine Ketones Negative (Negative) 06/21/23 15:36 Urine Blood 2+ (Negative) H 06/21/23 15:36 Urine Nitrate Negative (Negative) 06/21/23 15:36 Urine Bilirubin Neg (Negative) 06/21/23 15:36 Urine Urobilinogen Norm mg/dL (Negative) 06/21/23 15:36 Ur Leukocyte Esterase Trace (Negative) H 06/21/23 15:36 Urine RBC 0-4 /hpf (0-2) H 06/21/23 15:36 Urine WBC 5-10 /hpf (0-5) H 06/21/23 15:36 Ur Squamous Epith Cells 0-4 /hpf (0-5) H 06/21/23 15:36 Amorphous Sediment Not Reportable 06/21/23 15:36 Urine Bacteria 2+ /hpf (NONE) H 06/21/23 15:36 Urine Mucus 2+ /hpf 06/21/23 15:36 Urine Opiates Screen Negative ng/mL (Negative) 06/21/23 15:36 Ur Barbiturates Screen Negative ng/mL (Negative) 06/21/23 15:36 Ur Phencyclidine Scrn Negative ng/mL (Negative) 06/21/23 15:36 Ur Amphetamines Screen Negative ng/mL (Negative) 06/21/23 15:36 U Benzodiazepines Scrn Negative ng/mL (Negative) 06/21/23 15:36 Urine Cocaine Screen Negative ng/mL (Negative) 06/21/23 15:36 U Marijuana (THC) Screen Negative ng/mL (Negative) 06/21/23 15:36 Vitals Last Vital Signs Temp 97.6 F 06/22/23 08:00 Pulse 71 06/22/23 08:00 Resp 17 06/22/23 08:00 BP 123/71 06/22/23 08:21 Pulse Ox 95 06/22/23 08:00 O2 Del Method Room Air 06/21/23 18:14 Discharge Plan Discharge Patient Disposition: Home Condition: Stable Prescriptions: New cefdinir 300 mg capsule 300 mg PO BID 5 Days Qty: 10 0RF Continued uuronmqw-kccumugno-HL 3.5-10,000-1 mg/mL-unit/mL-% solution 4 drp otic (ear) TID levothyroxine 137 mcg tablet 137 mcg PO DAILY atorvastatin 80 mg tablet 80 mg PO DAILY lisinopril 20 mg tablet 20 mg PO DAILY isosorbide mononitrate 30 mg tablet extended release 24 hr 30 mg PO QAM clopidogrel 75 mg tablet 75 mg PO DAILY Sandra 180 mg Tablet 180 mg PO DAILY Aspir-81 81 mg Tablet,Delayed Release (Dr/Ec) 81 mg PO DAILY escitalopram oxalate 10 mg tablet 15 mg PO BEDTIME Discharge Orders: Discharge Order (Routine); Ordered 06/22/23 Ordered By: Bill Loredo Discharge Diet: Cardiac Discharge Activity: Resume usual activity Patient Instructions: Opioid Safety Activity Restrictions/Additional Instructions: - Please follow-up with cardiology in [place] ?, If you have any recurrent syncopal episodes please go to emergency room, ? If any chest pain or palpitations go to emergency room ? Please follow-up with cardiology for discussion about consideration of 1 month event monitor ? Drink plenty of electrolyte balanced fluids -For your urinary tract infection please take cefdinir Discharge Attestations Time Spent in Discharge Care*: greater than 30 min Quality Metrics Clinical Quality Measures [ No reported AMI, CVA or VTE this stay] Coding Level of Care Code 09606 Total time (in minutes) for Discharge: 45 Diagnoses Syncope R55 Lightheadedness R42 Nausea & vomiting R11.2 Headache R51.9
[2023-06-22 11:51] VITALS: BP 123/71; PULSE 71; RESP 17; TEMP 36.4; O2SAT 95
== END 2023-06-22 11:52 | disposition home or self-care (01) ==
LOC: ER 16:27 → MEDSURG 17:27
PROVIDERS: Physician Assistant; Admitting Provider Family Medicine; Emergency Provider Family Medicine; Visit Provider Family Medicine
DX: R55 Syncope and collapse (principal); R42 Dizziness and giddiness; R11.2 Nausea with vomiting, unspecified; R51.9 Headache, unspecified; I25.10 Atherosclerotic heart disease of native coronary artery without angina pectoris; I10 Essential (primary) hypertension; E03.9 Hypothyroidism, unspecified; Z95.5 Presence of coronary angioplasty implant and graft; Z79.82 Long term (current) use of aspirin
CPT/HCPCS: 36415; 70450; 70496; 70498; 71046; 80053; 80061; 80306; 81001; 83036; 83605; 83735; 83880; 84100; 84145; 84439; 84443; 84481; 84484; 85025; 85610; 85730; 86140; 87086; 93005; 93306; 96372; 97165; 99285; C9113; G0378; J1650; J7030; Q9967